=== PATIENT | female | born 1990 | race Hispanic/Latino ===

== ENCOUNTER 2017-04-24 12:41 | Emergency (ER) | payer BC ==
[~2017-04-24] VITALS: Ht 160 cm; Wt 93.9 kg
[~2017-04-24 12:41] MED LIST: ALBUTEROL0.63 MG/3 NEB; DOXYCYCLINE HY100 MG PO; GUAIFENESIN DM118 ML PO; LOESTRIN1 EAC1 PO; Loratadine PO; PREDNISONE20 MG PO; PROVENTIL 0.083%3 ML; SINGULAIR10 MG PO; TESSALON PERLE100 MG PO; VENTOLIN HFA18 GM INH
[2017-04-24] MEDS ORDERED: PENICILLIN G BENZATHINE LA 1.2 MU TBX IM STA (13:12)
== END 2017-04-24 14:04 | disposition home or self-care (01) ==
LOC: ER 12:41
DX: R50.9 Fever, unspecified (principal); J02.0 Streptococcal pharyngitis
CPT/HCPCS: 87400; 99283; J0561

== ENCOUNTER → 2017-05-18 | Outpatient (CLI) | payer BC ==
--- NOTE | 2017-05-18 17:33 | Diagnostic Imaging Report ---
PROCEDURE: Frontal and lateral views of the chest. COMPARISON: Patients [facility], DX, CHEST 2 VIEWS, 07/14/2016, 22:34. INDICATIONS: PNEUMONIA FINDINGS: Lines/tubes: None. Lungs: Patchy density in the retrocardiac region on the lateral view is nonspecific, could reflect developing pneumonia in the proper clinical setting. Pleura: There is no pleural effusion or pneumothorax. Heart and mediastinum: The heart and the mediastinum are normal. Bones: No acute bony abnormality. IMPRESSION: 1. Patchy density in the retrocardiac region on the lateral view is nonspecific, could reflect developing pneumonia in the proper clinical setting. recommend followup chest and lateral views after treatment in 6-8 weeks to document resolution. Anuel Mckoy M.D. Dictated by: Anuel Mckoy M.D. on 05/18/2017 at 17:34 Electronically approved by: Anuel Mckoy M.D. on 05/18/2017 at 17:34
== END ==
LOC: RAD 16:49
PROVIDERS: ATTEND Family Medicine
DX: J18.9 Pneumonia, unspecified organism (principal)
CPT/HCPCS: 71046

== ENCOUNTER 2017-08-29 08:00 | Emergency (ER) | payer BC ==
[~2017-08-29] VITALS: Ht 160 cm; Wt 97.5 kg
[2017-08-29] MEDS ORDERED: KETOROLAC TROMETHAMINE 60 MG/2 ML VIAL IM ONE (08:45)
[2017-08-29 09:00] LABS: CLARITY,URINE CLEAR (CLEAR); COLOR,URINE YELLOW (YELLOW); LEUKOCYTE ESTERASE ,URINE NEGATIVE (NEGATIVE); NITRITE,URINE NEGATIVE (NEGATIVE); PROTEIN,URINE DIPSTICK NEGATIVE (NEGATIVE)
[2017-08-29 09:01] LABS: BILIRUBIN,URINE NEGATIVE (NEGATIVE); KETONES,URINE NEGATIVE (NEGATIVE); PREGNANCY TEST, URINE NEGATIVE (NEGATIVE); URINE UROBILINOGEN 0.2 mg/dL (0.2 - 1)
[2017-08-29 09:12] LABS: EPITHELIAL CELLS,URINE RARE /LPF; RBC,URINE 21-50 /HPF (0-5)
--- NOTE | 2017-08-29 09:34 | Diagnostic Imaging Report ---
PROCEDURE:PELVIS AP 1-2 VIEWS TECHNIQUE:AP pelvis INDICATION:Fall COMPARISON:None. FINDINGS: Pelvic ring and and regional skeleton are intact. Left lumbosacral pseudoarthrosis. CONCLUSION: No evidence of acute traumatic injury. Dictated by: Cyril Kebede M.D. on 08/29/2017 at 9:37 Electronically approved by: Cyril Kebede M.D. on 08/29/2017 at 9:37
--- NOTE | 2017-08-29 09:34 | Diagnostic Imaging Report ---
PROCEDURE:SP LUMBAR AP \T\ LATERAL 2-3VWS TECHNIQUE:AP, lateral and cone-down lateral lumbar spine totaling 4 radiographs INDICATION:Fall COMPARISON:None. FINDINGS: 5 nonrib-bearing lumbar vertebral bodies. Vertebral body and disc space height are normal. Regional skeleton intact. CONCLUSION: No evidence of acute traumatic injury. Dictated by: Cyril Kebede M.D. on 08/29/2017 at 9:38 Electronically approved by: Cyril Kebede M.D. on 08/29/2017 at 9:38
[2017-08-29 09:51] VITALS: BP 103/72
== END 2017-08-29 10:05 | disposition home or self-care (01) ==
LOC: ER 08:00
DX: S30.0XXA Contusion of lower back and pelvis, initial encounter (principal); S33.5XXA Sprain of ligaments of lumbar spine, initial encounter; S70.02XA Contusion of left hip, initial encounter; W01.0XXA Fall on same level from slipping, tripping and stumbling without subsequent striking against object, initial encounter; Y93.01 Activity, walking, marching and hiking; Y92.002 Bathroom of unspecified non-institutional (private) residence as the place of occurrence of the external cause; J45.909 Unspecified asthma, uncomplicated
CPT/HCPCS: 72100; 72170; 81001; 81025; 99283; J1885

== ENCOUNTER → 2018-05-15 | Outpatient (CLI) | payer BC | LOC: SLEEP 15:51 | PROVIDERS: ATTEND Internal Medicine | DX: R06.83 Snoring (principal) | CPT/HCPCS: 95810 ==

== ENCOUNTER → 2018-07-19 | Day surgery (SDC) | payer BC ==
[2018-07-07 15:36] LABS: BASOPHILS # (AUTO) 0.1 (0.0-0.1); BASOPHILS % 0.9 % (0.0-1.0); EOSINOPHILS # (AUTO) 0.3 (0.0-0.4); EOSINOPHILS % 3.3 % (0.0-6.0); HEMATOCRIT 35.6 % (34.2-44.1); LYMPHOCYTES # (AUTO) 2.6 (1.0-3.2); LYMPHOCYTES % 25.3 % (18.0-39.1); MEAN CORPUSCULAR HEMOGLOBIN 26.6 pg (28-32); MEAN CORPUSCULAR HGB CONC 33.7 g/dL (31-35); MEAN CORPUSCULAR VOLUME 78.9 fL (81-99); MONOCYTES # (AUTO) 0.8 (0.2-0.8); MONOCYTES % 7.5 % (4.4-11.3); NEUTROPHILS # (AUTO) 6.4 (2.1-6.9); NEUTROPHILS % 62.7 % (38.7-80.0); PLATELET COUNT 277 x10e3/uL (140-360); RED BLOOD COUNT 4.51 x10e6/uL (3.6-5.1); RED CELL DISTRIBUTION WIDTH 16.9 % (11.7-14.4)
--- NOTE | 2018-07-07 20:49 | Diagnostic Imaging Report ---
EXAMINATION: PA and lateral views of the chest. COMPARISON: None CLINICAL HISTORY: Preadmission evaluation, tonsillar removal DISCUSSION: Lines/tubes: None. Lungs: The lungs are well inflated and clear. No pneumonia or pulmonary edema. Pleura: No pleural effusion or pneumothorax. Heart and mediastinum: The cardiomediastinal silhouette is normal. Bones and soft tissues: No acute bony abnormalities. IMPRESSION: No acute cardiopulmonary abnormalities. Signed by: Dr. Abel Sarabia M.D. on 07/07/2018 8:46 PM
[~2018-07-19] MED LIST changes: +ACETAMINOPHEN 1000 MG/100 ML IV ONE; +ALBUTEROL SULF 0.083% NEB SOLN 3 ML NEB ONE; +ALBUTEROL SULFATE HFA 8GM INHALATION AEROSOL INH ONE; +BUPIVACAINE 0.25% 30ML SDV INJ ONE; +DEXAMETHASONE SOD PHOS INJ 4 MG/ML VIAL ONE; +FENTANYL CITRATE/PF 100MCG/2 ML INJ ONE; +GLYCOPYRROLATE INJ 1MG/ 5 ML SYR ONE; +HYDROMORPHONE 2MG/ML 2 MG/ML ML ONE; +LIDOCAINE HCL 2% LOCAL INJ 5 ML SDV VIAL INJ ONE; +MIDAZOLAM HCL 2 MG/2 ML VIAL ONE; +NEOSTIGMINE 5 MG/5ML SYR ONE; +ONDANSETRON HCL INJ 2MG/ML 2ML 2 MG/ML VIAL ONE; +PROPOFOL IV EMULSION 10 MG/ML 20 ML VIAL ONE; +ROCURONIUM BROMIDE 10 MG/ML 5ML VIAL ONE; +SEVOFLURANE INHAL SOLN 250 ML PEN BTL ONE; +SUCCINYLCHOLINE 200 MG/10 ML SYR ONE; +SYMBICORT 16010.2 GM INH; +TRANEXAMIC ACID25 GM PO
[2018-07-19 09:30] VITALS: BP 126/67
--- NOTE | 2018-07-19 14:32 | Operative Report ---
DATE OF PROCEDURE: 07/19/2018 SURGEON: Cyril Ng MD PREOPERATIVE DIAGNOSES: Obstructive sleep apnea, adenotonsillar hypertrophy, chronic adenotonsillitis. POSTOPERATIVE DIAGNOSES: Obstructive sleep apnea, adenotonsillar hypertrophy, chronic adenotonsillitis. PROCEDURE: Tonsillectomy and adenoidectomy. SIGNIFICANT FINDINGS: Tonsils are 3+/3+, scarred. Adenoids are moderately enlarged. BAIL ATTACHER: None. ANESTHESIA: General endotracheal tube anesthesia. SPECIMENS REMOVED: Tonsils (adenoids were coblated). BLOOD LOSS: Less than 1 mL. COMPLICATIONS: None. INDICATIONS: The patient is a 27-year-old female with one-year history of loud snoring, gasping for air, and apneas during sleep. She also experiences about four throat infections per year refractory to multiple course of antibiotics. She is a nonsmoker. She has had no previous throat or neck surgery. On examination, the tonsils are 3+/3+, scarred bilaterally. She is scheduled for tonsillectomy and adenoidectomy for the treatment of obstructive sleep apnea, adenotonsillar hypertrophy, and chronic adenotonsillitis. Risks and complications of the procedures were thoroughly discussed with the patient and include infection, bleeding, scarring, failure to improve, need for additional operations, damage to teeth, gums, tongue and lips, persistent snoring and sleeping difficulties requiring further evaluation, persistent throat infections, chronic pain, voice changes, numbness of the tongue and inability to taste, scarring of the nasopharynx resulting in permanent worse nasal obstruction, leakage of fluid through the nose while drinking liquids, damage to the eustachian tube orifices causing middle ear fluid and hearing loss, need for blood transfusions, damage to surrounding nerves, blood vessels and muscles. She fully understands and gives consent. PROCEDURE IN DETAIL: The patient was taken to the operating room and placed supine on the operating table, where general anesthesia was achieved through orotracheal intubation. Eyes were taped. Table was turned 90 degrees with the head towards the surgeon. Head and body were draped. Chaitanya-Chet mouth gag was inserted without difficulty and placed into suspension on the Vora stand. There was no evidence of bifid uvula, diastasis of the muscular uvulae or a notched hard palate. Red rubber catheters were then inserted into the nose and brought out through the mouth to retract the soft palate. Examination of the nasopharynx with the laryngeal mirror revealed the adenoids to be moderately hypertrophied. Tonsils were 3+/3+ bilaterally. The left tonsil was grasped with the tonsillar Allis clamp and was removed with the ArthroCare coblator on a setting of 6 on cut mode taking care to stay right on the capsule of the tonsil. The right tonsil was removed in the same way. Both tonsillar beds were scarred from previous infection. The tonsillar beds were then addressed for hemostasis with the ArthroCare coblator on a setting of 3 on coag mode. This was performed on both sides. The adenoids were then removed with the ArthroCare Coblator on a setting of 8 on cut mode taking care to avoid trauma to the torus tubarius bilaterally. Hemostasis was obtained with the coblator on a setting of 3 on coag mode. Following this, 3 mL of 0.25% plain Marcaine was injected into the free edges of the anterior and posterior tonsillar pillars. Thorough irrigation was then performed. Stomach contents were suctioned with an NG tube. No evidence of bleeding was seen with Valsalva maneuver. Chaitanya- Chet mouth gag and red rubber catheters were then removed without difficulty revealing no trauma to the teeth, gums, tongue, and lips. The patient was awakened in the operating room, extubated, and taken to the recovery room in good condition. Cyril Ng MD JKY/MODL /[id number] [facility]
== END | disposition home or self-care (01) ==
LOC: OR 07-14 05:17
PROVIDERS: ATTEND Otolaryngology
DX: J35.03 Chronic tonsillitis and adenoiditis (principal); G47.33 Obstructive sleep apnea (adult) (pediatric); A42.9 Actinomycosis, unspecified; J45.909 Unspecified asthma, uncomplicated; N92.0 Excessive and frequent menstruation with regular cycle; Z88.1 Allergy status to other antibiotic agents; Z88.8 Allergy status to other drugs, medicaments and biological substances; Z01.812 Encounter for preprocedural laboratory examination; Z01.818 Encounter for other preprocedural examination
CPT/HCPCS: 36415; 42821; 71046; 81025; 85025; 88304; J0131; J1100; J1170; J2001; J2250; J2405; J2704; J3490

== ENCOUNTER 2020-05-15 13:32 | Emergency (ER) | payer BC ==
[~2020-05-15] VITALS: Ht 160 cm; Wt 108.1 kg
[~2020-05-15 13:32] MED LIST changes: -ACETAMINOPHEN 1000 MG/100 ML IV ONE; -ALBUTEROL SULF 0.083% NEB SOLN 3 ML NEB ONE; -ALBUTEROL SULFATE HFA 8GM INHALATION AEROSOL INH ONE; -BUPIVACAINE 0.25% 30ML SDV INJ ONE; -DEXAMETHASONE SOD PHOS INJ 4 MG/ML VIAL ONE; -FENTANYL CITRATE/PF 100MCG/2 ML INJ ONE; -GLYCOPYRROLATE INJ 1MG/ 5 ML SYR ONE; -HYDROMORPHONE 2MG/ML 2 MG/ML ML ONE; -LIDOCAINE HCL 2% LOCAL INJ 5 ML SDV VIAL INJ ONE; -MIDAZOLAM HCL 2 MG/2 ML VIAL ONE; -NEOSTIGMINE 5 MG/5ML SYR ONE; -ONDANSETRON HCL INJ 2MG/ML 2ML 2 MG/ML VIAL ONE; -PROPOFOL IV EMULSION 10 MG/ML 20 ML VIAL ONE; -ROCURONIUM BROMIDE 10 MG/ML 5ML VIAL ONE; -SEVOFLURANE INHAL SOLN 250 ML PEN BTL ONE; -SUCCINYLCHOLINE 200 MG/10 ML SYR ONE
[2020-05-15] MEDS ORDERED: KETOROLAC TROMETHAMINE 30 MG/ML VIAL IV STA (14:49)
[2020-05-15] MEDS ORDERED: ONDANSETRON HCL INJ 2MG/ML 2ML 2 MG/ML VIAL IV STA (14:49)
[2020-05-15] MEDS ORDERED: SODIUM CHLORIDE 0.9% 1000ML 1,000 ML IV SCH (15:00)
[2020-05-15] MEDS ORDERED: ACETAMINOPHEN 325 MG TAB PO ONE (15:00)
[2020-05-15] MEDS ORDERED: POTASSIUM CHLORIDE 20 MEQ TAB CR PO STA ×2 (15:42→15:43)
[2020-05-15] MEDS ORDERED: SODIUM CHLORIDE 0.9% 1000ML 1,000 ML ONE (15:54)
[2020-05-15] MEDS ORDERED: ACETAMINOPHEN 325 MG TAB ONE (15:54)
[2020-05-15] MEDS ORDERED: KETOROLAC TROMETHAMINE 30 MG/ML VIAL ONE (15:54)
[2020-05-15] MEDS ORDERED: PROMETHAZINE HCL (IM) 25 MG/ML VIAL IM ONE (17:00)
[2020-05-15] MEDS ORDERED: PROMETHAZINE 12.5MG/ NACL 0.9% 12.5 MG/50 ML BAG IV ONE (17:00)
[2020-05-15] MEDS ORDERED: ONDANSETRON HCL INJ 2MG/ML 2ML 2 MG/ML VIAL ONE (17:01)
[2020-05-15] MEDS ORDERED: SODIUM CHLORIDE 0.9% 50ML 50 ML ONE (17:01)
[2020-05-15] MEDS ORDERED: PROMETHAZINE HC25 M1 PO (17:03)
[2020-05-15] MEDS ORDERED: VENTOLIN HFA18 GM INH (17:05)
[2020-05-15 17:28] VITALS: BP 109/57
== END 2020-05-15 17:27 | disposition home or self-care (01) ==
LOC: FSED 14:07
DX: J02.9 Acute pharyngitis, unspecified (principal); B34.9 Viral infection, unspecified; H92.02 Otalgia, left ear; R11.2 Nausea with vomiting, unspecified; E87.6 Hypokalemia; R51.9 Headache, unspecified; J45.909 Unspecified asthma, uncomplicated
CPT/HCPCS: 80053; 81003; 81025; 83518; 85025; 87400; 96374; 96375; 99283; J1885; J2405; J2550; J7030

== ENCOUNTER 2021-06-29 23:41 | Emergency (ER) | payer OTHER ==
[~2021-06-29] VITALS: Ht 160 cm; Wt 108.0 kg
[~2021-06-29 23:41] MED LIST changes: +PROMETHAZINE HC25 M1 PO
[2021-06-30] MEDS ORDERED: TETANUS/DIPHTHERIA TOX ADULT 0.5 ML SYR IM ONE (00:30)
[2021-06-30] MEDS ORDERED: HYDROCODONE/APAP 5MG-325MG TAB PO ONE (00:30)
[2021-06-30] MEDS ORDERED: HYDROCODONE/APAP 5MG-325MG TAB ONE (00:30)
[2021-06-30] MEDS ORDERED: TETANUS/DIPHTHERIA TOX ADULT 0.5 ML SYR ONE (00:34)
[2021-06-30] MEDS ORDERED: BACITRACIN ZINC 0.9GM TP ONE (01:15)
[2021-06-30] MEDS ORDERED: ULTRAM 50MG50 MG PO (01:20)
== END 2021-06-30 01:45 | disposition home or self-care (01) ==
LOC: FSED 23:58
DX: S67.22XA Crushing injury of left hand, initial encounter (principal); S60.00XA Contusion of unspecified finger without damage to nail, initial encounter; J45.909 Unspecified asthma, uncomplicated; V49.9XXA Car occupant (driver) (passenger) injured in unspecified traffic accident, initial encounter; Z88.1 Allergy status to other antibiotic agents; Z88.8 Allergy status to other drugs, medicaments and biological substances; Z79.899 Other long term (current) drug therapy
CPT/HCPCS: 90471; 90714; 99283

== ENCOUNTER 2023-12-19 04:20 | Observation (INO) | payer MEDICARE, OTHER ==
[2023-12-19] VITALS (13 sets, daily range): BP systolic 114–125; BP diastolic 67–77; PULSE 85–126; RESP 17–22; TEMP 97.6–98.4; O2SAT 95–100
[~2023-12-19] VITALS: Ht 160 cm; Wt 95.3 kg
[~2023-12-19 04:20] MED LIST changes: +NAPROXEN250 MG PO; +ULTRAM 50MG50 MG PO
[2023-12-19] MEDS ORDERED: ALBUTEROL/IPRATROPIUM 3 ML NEB ONE (04:33)
[2023-12-19] MEDS: ALBUTEROL/IPRATROPIUM 3 ML NEB NEB STA ×2 (04:34→05:31)
[2023-12-19] MEDS: PREDNISONE 20 MG TAB PO STA (04:52)
[2023-12-19 05:13] LABS: INFLUENZAE A&B ANTIGEN (RAPID) NEGATIVE (NEGATIVE); RESPIRATORY SYNC. VIRUS NEGATIVE (NEGATIVE)
[2023-12-19] MEDS: SODIUM CHLORIDE 0.9% 1000ML 1,000 ML IV SCH (06:28)
[2023-12-19] MEDS: MAGNESIUM SULF 1GRAM/DEXTROSE 100 ML IV ONE (06:28)
[2023-12-19 06:46] LABS: BASOPHILS # (AUTO) 0.1 (0.0-0.1); BASOPHILS % 1.1 % (0.0-1.0); EOSINOPHILS # (AUTO) 0.6 (0.0-0.4); EOSINOPHILS % 5.9 % (0.0-6.0); HEMATOCRIT 38.8 % (34.2-44.1); HEMOGLOBIN 12.3 g/dL (12.0-16.0); LYMPHOCYTES # (AUTO) 3.6 (1.0-3.2); LYMPHOCYTES % 33.2 % (18.0-39.1); MEAN CORPUSCULAR HEMOGLOBIN 27.8 pg (28-32); MEAN CORPUSCULAR HGB CONC 31.7 g/dL (31-35); MEAN CORPUSCULAR VOLUME 87.6 fL (81-99); MONOCYTES # (AUTO) 0.6 (0.2-0.8); MONOCYTES % 5.5 % (4.4-11.3); NEUTROPHILS # (AUTO) 5.9 (2.1-6.9); NEUTROPHILS % 53.8 % (38.7-80.0); PLATELET COUNT 225 x10e3/uL (140-360); RED BLOOD COUNT 4.43 x10e6/uL (3.6-5.1); RED CELL DISTRIBUTION WIDTH 12.9 % (11.7-14.4); WHITE BLOOD COUNT 10.89 x10e3/uL (4.8-10.8)
[2023-12-19 07:08] LABS: ALBUMIN 3.8 g/dL (3.5-5.0); ANION GAP 16.7 mmol/L (8-16); BILIRUBIN,TOTAL 0.3 mg/dL (0.2-1.2); CALCIUM 9.3 mg/dL (8.4-10.2); CREATININE, SERUM 0.7 mg/dL (0.57-1.11); TOTAL PROTEIN 7.7 g/dL (6.5-8.1)
[2023-12-19 07:14] LABS: POTASSIUM 2.7 mmol/L (3.5-5.1)
[2023-12-19] MEDS: POTASSIUM CHLORIDE 20MEQ/100ML 100 ML IV STA (08:25)
[2023-12-19] MEDS: POTASSIUM CHLORIDE 20 MEQ TAB CR PO STA (08:25)
[2023-12-19] MEDS ORDERED: BENZONATATE 100 MG CAP PO PRN ×2 (09:45→13:00)
[2023-12-19] MEDS ORDERED: ALBUTEROL/IPRATROPIUM 3 ML NEB NEB PRN (09:45)
[2023-12-19] MEDS ORDERED: INFLUENZA VIRUS VAC SPLIT INJ 0.5 ML SYR IM SCH (11:00)
[2023-12-19] MEDS: CEPHALEXIN 500 MG CAP PO SCH (11:00)
[2023-12-19] MEDS: GUAIFENESIN 600MG/DEXTROMETHORPHAN 30MG TABSR PO SCH (11:02)
[2023-12-19] MEDS: MONTELUKAST SODIUM 10 MG TAB PO ONE (11:02)
[2023-12-19] MEDS: POTASSIUM CHLORIDE 20 MEQ TAB CR PO ONE ×2 (11:03→13:03)
[2023-12-19] MEDS: PNEUMOCOCCAL VACCINE POLYVALENT 23 MCG/0.5 ML VIAL IM SCH (11:06)
[2023-12-19] MEDS: LORATADINE/PSEUDOEPHEDRINE 24 HR SR TAB PO ONE (13:04)
[2023-12-19] MEDS: INFLUENZA VIRUS VAC SPLIT INJ 0.5 ML SYR IM ONE (13:05)
[2023-12-19] MEDS: ALBUTEROL/IPRATROPIUM 3 ML NEB NEB SCH (14:06)
[2023-12-19] MEDS ORDERED: BENZONATATE 100 MG CAP PO SCH (15:00)
[2023-12-19] MEDS: HEPARIN SOD (PORCINE) 5,000 UNIT/ML VIAL SC SCH (21:00)
[2023-12-19] MEDS: MONTELUKAST SODIUM 10 MG TAB PO SCH (21:50)
[2023-12-20] VITALS (8 sets, daily range): BP systolic 93–115; BP diastolic 52–70; PULSE 84–97; RESP 17–20; TEMP 97.8–97.9; O2SAT 96–100
[2023-12-20 06:52] LABS: BASOPHILS # (AUTO) 0.1 (0.0-0.1); BASOPHILS % 0.9 % (0.0-1.0); EOSINOPHILS # (AUTO) 0.2 (0.0-0.4); EOSINOPHILS % 2.2 % (0.0-6.0); HEMATOCRIT 37.4 % (34.2-44.1); HEMOGLOBIN 11.6 g/dL (12.0-16.0); LYMPHOCYTES # (AUTO) 2.9 (1.0-3.2); LYMPHOCYTES % 26.7 % (18.0-39.1); MEAN CORPUSCULAR HEMOGLOBIN 27.6 pg (28-32); MEAN CORPUSCULAR VOLUME 88.8 fL (81-99); MONOCYTES # (AUTO) 0.7 (0.2-0.8); MONOCYTES % 6.3 % (4.4-11.3); NEUTROPHILS # (AUTO) 6.8 (2.1-6.9); NEUTROPHILS % 63.4 % (38.7-80.0); PLATELET COUNT 193 x10e3/uL (140-360); RED BLOOD COUNT 4.21 x10e6/uL (3.6-5.1); RED CELL DISTRIBUTION WIDTH 13.2 % (11.7-14.4); WHITE BLOOD COUNT 10.66 x10e3/uL (4.8-10.8)
[2023-12-20 07:40] LABS: ALBUMIN 3.4 g/dL (3.5-5.0); ALBUMIN/GLOBULIN RATIO 0.9 (0.8-2.0); ANION GAP 13.7 mmol/L (8-16); BILIRUBIN,TOTAL 0.4 mg/dL (0.2-1.2); CALCIUM 9.1 mg/dL (8.4-10.2); CREATININE, SERUM 0.63 mg/dL (0.57-1.11); POTASSIUM 3.7 mmol/L (3.5-5.1); TOTAL PROTEIN 7.2 g/dL (6.5-8.1)
[2023-12-20] MEDS: LORATADINE 10 MG TAB PO SCH (08:55)
[2023-12-20] MEDS: PREDNISONE 20 MG TAB PO SCH (08:55)
== END 2023-12-20 14:45 | disposition home or self-care (01) ==
LOC: ER 04:26 → ERHOLD 05:58 → MED/SURG3 08:25
PROVIDERS: ADMIT Internal Medicine; ATTEND Internal Medicine
DX: J45.901 Unspecified asthma with (acute) exacerbation (principal); J06.9 Acute upper respiratory infection, unspecified; E87.6 Hypokalemia; E66.01 Morbid (severe) obesity due to excess calories; Z68.37 Body mass index [BMI] 37.0-37.9, adult; Z11.52 Encounter for screening for COVID-19
CPT/HCPCS: 36415 ×2; 71045; 80053 ×2; 84702; 85025 ×2; 87400; 87420; 90732; 94640 ×3; 94799 ×2; 99285; G0378 ×2; J1644 ×2; J3475; J7030; J7512 ×2; U0002